=== PATIENT | male | born 1955 | race Caucasian/White ===

== ENCOUNTER 2018-04-04 15:28 | Emergency (ER) | payer SELFPAY ==
[~2018-04-04] VITALS: Ht 167.6 cm; Wt 79.5 kg
[~2018-04-04 15:28] MED LIST: FOLI1TAB15 PO; LIB25 PO; MULT-36 PO; OMEP20CA4 PO; ONDA4TAB7 PO; POTA8CAP10 PO; PROM5L PO
[2018-04-04] MEDS ORDERED: CloNIDine HCL 0.1 MG TABLET PO ONE (17:45)
[2018-04-04] MEDS ORDERED: LISINOPRIL 10 MG TABLET PO ONE (17:45)
[2018-04-04 19:23] VITALS: BP 172/115
== END 2018-04-04 19:30 | disposition home or self-care (01) ==
LOC: EMS 15:29
DX: I10 Essential (primary) hypertension (principal); R51 Headache; F17.210 Nicotine dependence, cigarettes, uncomplicated
CPT/HCPCS: 99283

== ENCOUNTER 2020-02-16 10:35 | Emergency (ER) | payer MEDICARE, OTHER ==
[~2020-02-16] VITALS: Ht 167.6 cm; Wt 86.4 kg
[~2020-02-16 10:35] MED LIST changes: -POTA8CAP10 PO; +POTA8CAP20 PO
[2020-02-16] MEDS ORDERED: METF-960 PO (10:42)
[2020-02-16] MEDS ORDERED: ONDANSETRON HCL 4 MG/2 ML VIAL IVP ONE (11:30)
[2020-02-16] MEDS ORDERED: KETOROLAC TROMETHAMINE 30 MG/ML VIAL IVP ONE (11:30)
[2020-02-16] MEDS ORDERED: SODIUM CHLORIDE 0.9% 1,000 ML IV ONE (11:30)
[2020-02-16 12:07] LABS: BASOPHILS % (AUTO) 0.9 % (0.0-2.0); HEMATOCRIT 34.9 % (41-53); HEMOGLOBIN 11.2 g/dL (13.5-17.5); LYMPHOCYTES # (AUTO) 2.8 K/uL (1.0-4.8); MEAN CORPUSCULAR HEMOGLOBIN 27.2 pg (26.0-34.0); MEAN CORPUSCULAR HGB CONC 32.1 G/dL (31.0-37.0); MEAN CORPUSCULAR VOLUME 85 fL (80-100); MONOCYTES # (AUTO) 0.1 K/uL (0.1-1.0); MONOCYTES % (AUTO) 1.9 % (2.0-9.0); NEUTROPHILS # (AUTO) 0.6 K/uL (1.8-7.7); NEUTROPHILS % (AUTO) 16.2 % (40.0-70.0); RED BLOOD CELL COUNT(AUTO) 4.12 MIL/uL (4.50-5.90); RED CELL DISTRIBUTION WIDTH 17.6 % (11.5-14.5)
[2020-02-16 12:14] LABS: ANION GAP 11 mmol/L (8-16); CALCIUM, TOTAL 8.2 mg/dL (8.8-10.5); CARBON DIOXIDE 23 mmol/L (22-29); CHLORIDE 103 mmol/L (98-107); CREATININE 0.92 mg/dL (0.60-1.30); GLOMERULAR FILTR. RATE CALC > 60 mL/min (>60); GLUCOSE,RANDOM 94 mg/dL (70-110); SODIUM SERUM 137 mmol/L (136-145); UREA NITROGEN, BLOOD 15 mg/dL (7-18)
[2020-02-16 12:28] LABS: ALANINE AMINOTRANSFERASE 67 U/L (12-78); ALBUMIN 2.8 g/dL (3.4-5.0); ALKALINE PHOSPHATASE 308 U/L (46-116); ASPARTATE AMINOTRANSFERASE 75 U/L (15-37); BILIRUBIN,TOTAL 2.3 mg/dL (0.1-1.0); FREE T4 (FREE THYROXINE) 1.46 ng/dL (0.76-1.46); PLATELET COUNT (AUTO) 42 K/uL (150-450)
[2020-02-16 12:58] VITALS: BP 113/70
== END 2020-02-16 13:52 | disposition home or self-care (01) ==
LOC: EMS 10:43
DX: K70.30 Alcoholic cirrhosis of liver without ascites (principal); R63.0 Anorexia; D61.818 Other pancytopenia; F17.210 Nicotine dependence, cigarettes, uncomplicated
CPT/HCPCS: 36415; 71045; 80053; 80074; 82962; 84439; 84443; 84484; 85025; 93005; 96361; 96374; 96375; 99285; 99406; G0480; J1885; J2405; J7030